=== PATIENT | female | born 1955 | race Hispanic/Latino ===

== ENCOUNTER 2017-12-13 12:54 | Emergency (ER) | payer OTHER ==
[2017-12-13 13:08] VITALS: RESP 18; TEMP 98.6
[2017-12-13] MEDS ORDERED: Bacitracin 500 Units/gm Oint Foilpak UD ONE (13:37)
--- NOTE | 2017-12-13 13:52 | ED PDOC ---
Arrival/HPI - General Historian: Patient - History of Present Illness Time/Duration: Prior to Arrival Symptom Onset: Sudden Symptom Course: Unchanged Severity Level: Mild <Amado Mitchell - Last Filed: 12/13/17 20:57> <Hannah Iovry - Last Filed: 12/13/17 22:25> - General Chief Complaint: Upper Extremity Problem/Injury Time Seen by Provider: 12/13/17 13:24 - History of Present Illness Narrative History of Present Illness (Text): 12/13/17 13:49 61 year old female, past medical history of hypothyroidism, presents to the emergency department with splinter in the right third digit that happened 30 minutes prior to arrival. Patient is not complaining of any pain, swelling, redness, warmth, or bleeding. Denies fever, chills, nausea, vomiting, shortness of breath, chest pain, palpitations, abdominal pain, or urinary symptoms. (Amado Mitchell) Past Medical History - Provider Review Nursing Documentation Reviewed: Yes - Infectious Disease Hx of Infectious Diseases: None - Reproductive Menopause: Yes - Endocrine/Metabolic Hx Hypothyroidism: Yes - Psychiatric Hx Substance Use: No - Anesthesia Hx Anesthesia: No <Amado Mitchell - Last Filed: 12/13/17 20:57> Family/Social History - Physician Review Nursing Documentation Reviewed: Yes Family/Social History: Unknown Family HX Smoking Status: Unknown If Ever Smoked Hx Alcohol Use: Yes Frequency of alcohol use: Socially Hx Substance Use: No <Amado Mitchell - Last Filed: 12/13/17 20:57> Allergies/Home Meds <Amado Mitchell - Last Filed: 12/13/17 20:57> <Hannah Ivory - Last Filed: 12/13/17 22:25> Allergies/Adverse Reactions: Allergies No Known Allergies Allergy (Verified 12/13/17 13:07) Home Medications: Home Meds Medication Instructions Recorded Confirmed Levothyroxine [Synthroid] 0.075 mg PO DAILY 12/13/17 12/13/17 Levothyroxine [Synthroid] 88 mcg PO QD6 12/13/17 12/13/17 Review of Systems - Review of Systems Constitutional: absent: Fevers Eyes: absent: Vision Changes ENT: absent: Hearing Changes Respiratory: absent: SOB, Cough Cardiovascular: absent: Chest Pain, Palpitations Gastrointestinal: absent: Abdominal Pain, Nausea, Vomiting Genitourinary Female: absent: Dysuria, Hematuria Musculoskeletal: absent: Arthralgias, Back Pain Skin: absent: Rash, Pruritis, Skin Lesions, Laceration, Cellulitis Neurological: absent: Headache, Dizziness Endocrine: absent: Diaphoresis <HenryelleAmado - Last Filed: 12/13/17 20:57> Physical Exam Vital Signs Reviewed: Yes Temperature: Afebrile Blood Pressure: Hypertensive Pulse: Tachycardic Respiratory Rate: Normal Appearance: Positive for: Well-Appearing, Non-Toxic, Comfortable Pain Distress: None Mental Status: Positive for: Alert and Oriented X 3 - Systems Exam Head: Present: Atraumatic, Normocephalic Pupils: Present: PERRL Extroacular Muscles: Present: EOMI Mouth: Present: Moist Mucous Membranes Respiratory/Chest: Present: Clear to Auscultation, Good Air Exchange. No: Respiratory Distress, Accessory Muscle Use Cardiovascular: Present: Regular Rate and Rhythm, Normal S1, S2. No: Murmurs Abdomen: No: Tenderness, Distention, Peritoneal Signs Upper Extremity: Present: NORMAL PULSES, Capillary Refill < 2s, Other (Right 3rd digit splinter under nail). No: Edema, Tenderness, Swelling, Erythema, Temperature Abnormalties Lower Extremity: Present: Normal Inspection, NORMAL PULSES. No: Edema Skin: Present: Warm, Dry, Normal Color. No: Rashes Psychiatric: Present: Alert, Oriented x 3, Normal Insight, Normal Concentration <Jose GuadalupeioanaAmado - Last Filed: 12/13/17 20:57> Vital Signs Temp Pulse Resp BP Pulse Ox 12/13/17 14:18 82 18 149/90 96 12/13/17 13:04 98.6 F 96 H 18 163/91 H 99 Medical Decision Making <StephenAmado - Last Filed: 12/13/17 20:57> <Hannah Ivory - Last Filed: 12/13/17 22:25> ED Course and Treatment: 12/13/17 13:54 61F, presents to Emergency department with splinter under nail of right third digit. Used suture removal kit to remove as much of splinter as possible. Applied bacitracin and bandaid over nail. Advised patient to keep the area clean and apply bacitracin, avoid bodies of water to reduce chances of infection. Patient will be going on vacation, will provide antibiotic therapy. If symptoms, including but not limited to, fever, erythema, return to the Emergency department. Patient verbalized understanding and agreement of treatment plan. Case reviewed and discussed with attending provider. (Amado Mitchell) 12/13/17 20:51 Patient seen with Resident: In agreement with resident note. Patient was seen and evaluated with resident, came up with plan and treatment together. Patient with wood splinter under nail. No bleeding or cellulitis noted. Attempt to removal splinter in ED. Partial removal of splinter. Risks/benefits weighed with patient of further invasive procedure and given superficial location of splinter, no history of diabetes, will discharge home with tetanus updated, wound care instructions given, and need to evaluate and monitor for signs of infection. Have recommended re-evaluation and wound recheck for any persistent or worsening of any symptoms. (Hannah Ivory) - Medication Orders Current Medication Orders: Discontinued Medications Cephalexin Monohydrate (Keflex) 500 mg PO STAT STA PRN Reason: Protocol Stop: 12/13/17 14:04 Last Admin: 12/13/17 14:12 Dose: 500 mg Tetanus/Reduced Diphtheria/Acell Pertussis (Boostrix Vaccine Inj) 0.5 ml IM .ONCE ONE Stop: 12/13/17 14:04 Last Admin: 12/13/17 14:12 Dose: 0.5 ml Immunization Registry Document 12/13/17 14:12 GMD (Rec: 12/13/17 14:12 GMD [id number]) Immunization Registry Consent Date 12/13/17 <Amado Mitchell - Last Filed: 12/13/17 20:57> - PA / CHANGER FIXER / Resident Statement MD/DO has reviewed & agrees with the documentation as recorded. MD/DO has examined the patient and agrees with the treatment plan. - Scribe Statement The provider has reviewed the documentation as recorded by the Scribe <Hannah Ivory - Last Filed: 12/13/17 22:25> - Scribe Statement Kindra Hernandez All medical record entries made by the Scribe were at my direction and personally dictated by me. I have reviewed the chart and agree that the record accurately reflects my personal performance of the history, physical exam, medical decision making, and the department course for this patient. I have also personally directed, reviewed, and agree with the discharge instructions and disposition. (Hannah Ivory) Disposition/Present on Arrival - Present on Arrival Any Indicators Present on Arrival: No History of DVT/PE: No History of Uncontrolled Diabetes: No Urinary Catheter: No History of Decub. Ulcer: No History Surgical Site Infection Following: None - Disposition Have Diagnosis and Disposition been Completed?: Yes Disposition Time: 14:06 Patient Plan: Discharge <Amado Mitchell - Last Filed: 12/13/17 20:57> <Hannah Ivory - Last Filed: 12/13/17 22:25> - Disposition Diagnosis: Splinter Disposition: HOME/ ROUTINE Condition: GOOD Additional Instructions: Applied bacitracin and bandaid over nail. Advised patient to keep the area clean and apply bacitracin, avoid bodies of water to reduce chances of infection. Patient will be going on vacation, will provide antibiotic therapy. Please take as instructed. If symptoms, including but not limited to, fever or redness around the finger, return to the Emergency department. Patient verbalized understanding and agreement of treatment plan. Prescriptions: Cephalexin [cephalexin] 500 mg PO BID 7 Days #14 cap Referrals: Dasha Casiano MD [Primary Care Provider] - Follow up with primary Forms: [employer] ([place])
[2017-12-13] MEDS ORDERED: TDAP Vaccine 0.5 mL Syr IM ONE (14:03)
[2017-12-13 14:19] VITALS: BP 149/90; PULSE 82; O2SAT 96
== END 2017-12-13 14:31 | disposition home or self-care (01) ==
LOC: ED 12:54
DX: S60.452A Superficial foreign body of right middle finger, initial encounter (principal); W45.8XXA Other foreign body or object entering through skin, initial encounter; Y92.9 Unspecified place or not applicable; Z23 Encounter for immunization